=== PATIENT | male | born 1960 | race Caucasian/White ===

== ENCOUNTER 2018-09-19 15:22 | Emergency (ER) | payer MEDICARE, OTHER ==
[~2018-09-19] VITALS: Ht 182.9 cm; Wt 95.0 kg
[2018-09-19] MEDS ORDERED: FOLI1 PO (17:35)
[2018-09-19] MEDS ORDERED: QUET200T PO ×2 (17:35)
[2018-09-19] MEDS ORDERED: THIA100T67 PO (17:35)
[2018-09-19] MEDS ORDERED: OLAN5TAB2 PO (17:35)
[2018-09-19] MEDS ORDERED: VALP250S23 PO (17:35)
[2018-09-19] MEDS ORDERED: ATOR20TA86 PO (17:35)
[2018-09-19] MEDS ORDERED: FLUD25I IM (17:35)
[2018-09-19] MEDS ORDERED: GABA-531 PO (17:35)
[2018-09-19] MEDS ORDERED: ASPI-1182 PO (17:35)
[2018-09-19] MEDS ORDERED: DiphenhydrAMINE HCL 50 MG/ML VIAL IM ONE (18:45)
[2018-09-19] MEDS ORDERED: HALOPERIDOL LACTATE 5 MG/ML VIAL IM ONE (18:45)
[2018-09-19] MEDS ORDERED: LORazepam 2 MG/ML VIAL IM ONE (18:45)
[2018-09-19 19:10] LABS: BASOPHILS % (AUTO) 0.4 % (0.0-2.0); EOSINOPHILS % (AUTO) 1.4 % (1.0-6.0); HEMATOCRIT 35.7 % (41-53); HEMOGLOBIN 11.8 g/dL (13.5-17.5); LYMPHOCYTES # (AUTO) 1.9 K/uL (1.0-4.8); LYMPHOCYTES % (AUTO) 22.3 % (22.0-44.0); MEAN CORPUSCULAR HEMOGLOBIN 31.4 pg (26.0-34.0); MEAN CORPUSCULAR HGB CONC 33.2 G/dL (31.0-37.0); MEAN CORPUSCULAR VOLUME 95 fL (80-100); MONOCYTES # (AUTO) 2.1 K/uL (0.1-1.0); MONOCYTES % (AUTO) 24.9 % (2.0-9.0); NEUTROPHILS # (AUTO) 4.4 K/uL (1.8-7.7); PLATELET COUNT (AUTO) 351 K/uL (150-450); RED BLOOD CELL COUNT(AUTO) 3.76 MIL/uL (4.50-5.90); RED CELL DISTRIBUTION WIDTH 14.2 % (11.5-14.5)
[2018-09-19 19:29] LABS: ANION GAP 12 mmol/L (8-16); CALCIUM, TOTAL 9.3 mg/dL (8.8-10.5); CARBON DIOXIDE 27 mmol/L (22-29); CHLORIDE 103 mmol/L (98-107); CREATININE 0.96 mg/dL (0.60-1.30); GLOMERULAR FILTR. RATE CALC > 60 mL/min (>60); GLUCOSE,RANDOM 105 mg/dL (70-110); POTASSIUM 3.5 mmol/L (3.5-5.1); SODIUM SERUM 142 mmol/L (136-145); UREA NITROGEN, BLOOD 26 mg/dL (7-18)
[2018-09-19 19:32] LABS: APPEARANCE,URINE CLEAR (CLEAR); BILIRUBIN,URINE NEGATIVE (NEGATIVE); GLUCOSE, URINE (UA) NEGATIVE (NEGATIVE); KETONES,URINE 15 mg/dL (NEGATIVE); LEUKOCYTE ESTERASE ,URINE NEGATIVE (NEGATIVE); NITRATE,URINE NEGATIVE (NEGATIVE); OCCULT BLOOD,URINE NEGATIVE (NEGATIVE); PH,URINE 5.5 (5.0-8.0); PROTEIN,URINE TRACE (NEGATIVE); UROBILINOGEN,URINE 0.2 mg/dL (<=1.0)
[2018-09-19 19:33] LABS: ALANINE AMINOTRANSFERASE 66 U/L (12-78); ALBUMIN 3.3 g/dL (3.4-5.0); ALKALINE PHOSPHATASE 59 U/L (46-116); ASPARTATE AMINOTRANSFERASE 72 U/L (15-37); BILIRUBIN,TOTAL 0.4 mg/dL (0.1-1.0); TOTAL PROTEIN, SERUM 7.6 g/dL (6.4-8.2)
[2018-09-19 19:34] LABS: AMPHET/METH SCREEN,URINE NEGATIVE (NEGATIVE); BARBITURATE SCREEN, URINE NEGATIVE (NEGATIVE); BENZODIAZEPINES SCREEN,URINE NEGATIVE (NEGATIVE); CANNABINOID SCREEN,URINE NEGATIVE (NEGATIVE); COCAINE SCREEN,URINE NEGATIVE (NEGATIVE); METHADONE SCREEN, URINE NEGATIVE (NEGATIVE); OPIATE SCREEN,URINE NEGATIVE (NEGATIVE)
[2018-09-19 19:35] LABS: PHENCYCLIDINE SCREEN,URINE NEGATIVE (NEGATIVE)
[2018-09-20 00:48] VITALS: BP 112/66
== END 2018-09-20 00:50 | disposition home or self-care (01) ==
LOC: EMS 15:27
DX: F29 Unspecified psychosis not due to a substance or known physiological condition (principal); F31.9 Bipolar disorder, unspecified; F20.9 Schizophrenia, unspecified
CPT/HCPCS: 36415; 80053; 80307; 81003; 85025; 96372; 99285; G0480; J1200; J1630; J2060

== ENCOUNTER 2023-03-24 09:08 | Inpatient (IN) | payer MEDICARE, MEDICAID ==
[~2023-03-24] VITALS: Ht 172.7 cm; Wt 88.5 kg
[~2023-03-24 09:08] MED LIST: DIVA-112 PO; FOLI-130 PO; LACT10SO10 PO; POLY17PO47 PO; QUET100T34 PO; QUET200T30 PO; RISP120S SQ
[2023-03-24] MEDS ORDERED: LEVO50TA11 PO (11:14)
[2023-03-24] MEDS ORDERED: LEVO330T7 PO (11:14)
[2023-03-24] MEDS ORDERED: DOCU-412 PO (11:14)
[2023-03-24] MEDS ORDERED: FLUP25VI5 IM (11:14)
[2023-03-24] MEDS ORDERED: DiphenhydrAMINE HCL 50 MG/ML VIAL IM ONE (12:15)
[2023-03-24] MEDS ORDERED: LORazepam 2 MG/ML VIAL IM ONE (12:15)
[2023-03-24] MEDS ORDERED: HALOPERIDOL LACTATE 5 MG/ML VIAL IM ONE (12:15)
[2023-03-24 16:34] LABS: COVID AG,FIA SOURCE NASAL SWAB
[2023-03-24 17:18] LABS: SARS-COV2 (COVID) ANTIGEN,FIA Positive (Negative)
[2023-03-24] MEDS: LORazepam 2 MG TABLET PO PRN (19:55)
[2023-03-24] MEDS: HALOPERIDOL 5 MG TABLET PO PRN (19:55)
[2023-03-24] MEDS: ZOLPIDEM TARTRATE 10 MG TABLET PO PRN (20:41)
[2023-03-24] MEDS ORDERED: DIVALPROEX SODIUM 500 MG DR TABLET PO SCH (20:57)
[2023-03-24] MEDS ORDERED: QUEtiapine FUMARATE 100 MG TABLET PO SCH (21:00)
[2023-03-24 21:58] VITALS: BP 115/80; PULSE 94; RESP 18; TEMP 97.5; O2SAT 100
[2023-03-24 22:48] VITALS: BP 120/81; PULSE 90; RESP 18; TEMP 97.5
[2023-03-25] MEDS: HALOPERIDOL 5 MG TABLET PO PRN (05:02)
[2023-03-25] MEDS: LORazepam 2 MG TABLET PO PRN (05:02)
[2023-03-25 07:06] VITALS: BP 120/78; PULSE 96; RESP 18; TEMP 97.5
[2023-03-25 08:09] LABS: BASOPHILS % (AUTO) 0.3 % (0.0-2.0); HEMATOCRIT 31.1 % (41-53); HEMOGLOBIN 10.8 g/dL (13.5-17.5); LYMPHOCYTES # (AUTO) 1.4 K/uL (1.0-4.8); LYMPHOCYTES % (AUTO) 17.5 % (22.0-44.0); MEAN CORPUSCULAR HEMOGLOBIN 34.3 pg (26.0-34.0); MEAN CORPUSCULAR HGB CONC 34.8 G/dL (31.0-37.0); MEAN CORPUSCULAR VOLUME 99 fL (80-100); MONOCYTES # (AUTO) 1.3 K/uL (0.1-1.0); MONOCYTES % (AUTO) 15.2 % (2.0-9.0); NEUTROPHILS # (AUTO) 5.4 K/uL (1.8-7.7); PLATELET COUNT (AUTO) 197 K/uL (150-450); RED BLOOD CELL COUNT(AUTO) 3.16 MIL/uL (4.50-5.90); RED CELL DISTRIBUTION WIDTH 13.7 % (11.5-14.5); WHITE BLOOD COUNT (AUTO) 8.3 K/uL (4.5-11.0)
[2023-03-25 08:29] LABS: ALANINE AMINOTRANSFERASE 92 U/L (12-78); ALKALINE PHOSPHATASE 38 U/L (46-116); ANION GAP 6 mmol/L (8-16); ASPARTATE AMINOTRANSFERASE 220 U/L (15-37); BILIRUBIN,TOTAL 0.4 mg/dL (0.1-1.0); CALCIUM, TOTAL 8.9 mg/dL (8.8-10.5); CARBON DIOXIDE 31 mmol/L (22-29); CHLORIDE 97 mmol/L (98-107); CREATININE 0.61 mg/dL (0.60-1.30); GLOMERULAR FILTR. RATE CALC > 60 mL/min (>60); GLUCOSE,RANDOM 93 mg/dL (70-110); SODIUM SERUM 134 mmol/L (136-145); TOTAL PROTEIN, SERUM 6.7 g/dL (6.4-8.2); UREA NITROGEN, BLOOD 12 mg/dL (7-18)
[2023-03-25 08:48] VITALS: BP 120/86; PULSE 82; RESP 18; TEMP 98.1
[2023-03-25 08:49] VITALS: BP 120/86; PULSE 82; RESP 18; TEMP 98.1; O2SAT 98
[2023-03-25] MEDS ORDERED: QUEtiapine FUMARATE 100 MG TABLET PO SCH (09:00)
[2023-03-25] MEDS ORDERED: ALBUTEROL SULFATE HFA 90 MCG/PUFF 8 GM INHALER IH PRN (09:30)
[2023-03-25] MEDS ORDERED: ONDANSETRON HCL 4 MG TABLET PO PRN (09:30)
[2023-03-25] MEDS ORDERED: CloNIDine HCL 0.1 MG TABLET PO PRN (09:30)
[2023-03-25] MEDS ORDERED: IBUPROFEN 400 MG TABLET PO PRN (09:30)
[2023-03-25] MEDS ORDERED: DOCUSATE SODIUM 100 MG CAPSULE PO PRN (09:30)
[2023-03-25] MEDS ORDERED: MAGNESIUM HYDROXIDE SUSPENSION 30 ML UDCUP PO PRN (09:30)
[2023-03-25] MEDS ORDERED: GuaiFENesin/D-METHORPHAN [SUGAR-FREE] 200-20MG/10 ML SYRUP UDCUP PO PRN (09:30)
[2023-03-25] MEDS ORDERED: LOPERAMIDE HCL 2 MG CAPSULE PO PRN (09:30)
[2023-03-25] MEDS ORDERED: NICOTINE 14 MG/24 HOUR PATCH TD PRN (09:30)
[2023-03-25] MEDS ORDERED: PETROLATUM,WHITE 28 GM JELLY TP PRN (09:30)
[2023-03-25] MEDS ORDERED: ACETAMINOPHEN 325 MG TABLET PO PRN (09:30)
[2023-03-25] MEDS ORDERED: MAG HYDROX/ALUMINUM HYD/SIMETH ES 30 ML SUSPENSION UDCUP PO PRN (09:30)
[2023-03-25] MEDS ORDERED: DEXAMETHASONE 4 MG TABLET PO SCH (10:30)
[2023-03-25] MEDS: AZITHROMYCIN 500 MG TABLET PO SCH (12:49)
[2023-03-25] MEDS: DIVALPROEX SODIUM 500 MG DR TABLET PO SCH ×2 (12:49→21:09)
[2023-03-25] MEDS ORDERED: LEVOCARNITINE 330 MG PO SCH (13:00)
[2023-03-25] MEDS: LACTULOSE 20 GM/30 ML SOLUTION UDCUP PO SCH (17:51)
[2023-03-25] MEDS: AMOX TR/POT CLAV 500 MG/125 MG TABLET PO SCH (17:51)
[2023-03-25] MEDS: QUEtiapine FUMARATE 100 MG TABLET PO SCH (17:51)
[2023-03-25 20:03] VITALS: BP 152/83; PULSE 96; RESP 17; TEMP 98.8
[2023-03-25 20:05] VITALS: BP 152/83; PULSE 96; RESP 17; TEMP 98.8; O2SAT 96
[2023-03-25] MEDS: ZOLPIDEM TARTRATE 10 MG TABLET PO PRN (21:08)
[2023-03-25] MEDS: QUEtiapine FUMARATE 200 MG TABLET PO SCH (21:09)
[2023-03-26] MEDS: LEVOTHYROXINE SODIUM 50 MCG TABLET PO SCH (06:47)
[2023-03-26 08:50] VITALS: BP 140/88; PULSE 99; RESP 18; TEMP 98.2; O2SAT 99
[2023-03-26 08:52] LABS: ALCOHOL, BLOOD (SERUM) < 3 mg/dL (0-10)
[2023-03-26 08:53] VITALS: BP 140/88; PULSE 99; RESP 18; TEMP 98.2
[2023-03-26 08:53] LABS: CHOLESTEROL 135 mg/dL (131-200); HDL CHOLESTEROL 34 mg/dL (40-60); LDL CHOL (CALC.) 83 mg/dL (0-130); THYROID STIMULATING HORMONE 1.16 uIU/mL (0.36-3.74); TRIGLYCERIDES 90 mg/dL (15-150)
[2023-03-26] MEDS: AMOX TR/POT CLAV 500 MG/125 MG TABLET PO SCH ×2 (09:31→16:19)
[2023-03-26] MEDS: POLYETHYLENE GLYCOL 3350 17 GM PACKET PO SCH (09:31)
[2023-03-26] MEDS: DEXAMETHASONE 2 MG TABLET PO SCH (09:31)
[2023-03-26] MEDS: LACTULOSE 20 GM/30 ML SOLUTION UDCUP PO SCH ×2 (09:31→16:19)
[2023-03-26] MEDS: AZITHROMYCIN 500 MG TABLET PO SCH (09:32)
[2023-03-26] MEDS: DIVALPROEX SODIUM 500 MG DR TABLET PO SCH ×2 (09:32→21:04)
[2023-03-26] MEDS: QUEtiapine FUMARATE 100 MG TABLET PO SCH ×2 (09:32→16:19)
[2023-03-26] MEDS: HALOPERIDOL 5 MG TABLET PO PRN (10:40)
[2023-03-26] MEDS: LORazepam 2 MG TABLET PO PRN (10:40)
[2023-03-26 20:02] VITALS: BP 132/76; PULSE 103; RESP 18; TEMP 98.7; O2SAT 95
[2023-03-26 20:32] VITALS: BP 132/76; PULSE 103; RESP 18; TEMP 98.7
[2023-03-26] MEDS: ZOLPIDEM TARTRATE 10 MG TABLET PO PRN (21:04)
[2023-03-26] MEDS: QUEtiapine FUMARATE 200 MG TABLET PO SCH (21:04)
[2023-03-27] MEDS: LEVOTHYROXINE SODIUM 50 MCG TABLET PO SCH (06:53)
[2023-03-27 07:00] VITALS: BP 147/88; PULSE 70; RESP 18; TEMP 97.8
[2023-03-27 08:02] VITALS: BP 132/60; PULSE 88; RESP 18; TEMP 97.9
[2023-03-27 08:05] LABS: COVID AG,FIA SOURCE NASAL SWAB
[2023-03-27 08:54] LABS: SARS-COV2 (COVID) ANTIGEN,FIA Positive (Negative)
[2023-03-27] MEDS: DIVALPROEX SODIUM 500 MG DR TABLET PO SCH ×2 (10:53→20:53)
[2023-03-27] MEDS: QUEtiapine FUMARATE 100 MG TABLET PO SCH ×2 (10:53→17:37)
[2023-03-27] MEDS: LACTULOSE 20 GM/30 ML SOLUTION UDCUP PO SCH ×2 (10:54→17:37)
[2023-03-27] MEDS: POLYETHYLENE GLYCOL 3350 17 GM PACKET PO SCH (10:54)
[2023-03-27] MEDS: AMOX TR/POT CLAV 500 MG/125 MG TABLET PO SCH ×2 (10:54→17:37)
[2023-03-27] MEDS: DEXAMETHASONE 2 MG TABLET PO SCH (10:54)
[2023-03-27] MEDS: AZITHROMYCIN 500 MG TABLET PO SCH (10:54)
[2023-03-27 20:00] VITALS: BP 136/95; PULSE 95; RESP 18; TEMP 97.8
[2023-03-27] MEDS: QUEtiapine FUMARATE 200 MG TABLET PO SCH (20:53)
[2023-03-28] MEDS: LEVOTHYROXINE SODIUM 50 MCG TABLET PO SCH (06:58)
[2023-03-28 08:03] VITALS: BP 167/91; PULSE 90; RESP 18; TEMP 97.4
[2023-03-28] MEDS: LACTULOSE 20 GM/30 ML SOLUTION UDCUP PO SCH ×2 (09:00→16:53)
[2023-03-28] MEDS: POLYETHYLENE GLYCOL 3350 17 GM PACKET PO SCH (09:00)
[2023-03-28] MEDS: DEXAMETHASONE 2 MG TABLET PO SCH (10:14)
[2023-03-28] MEDS: QUEtiapine FUMARATE 100 MG TABLET PO SCH ×2 (10:14→16:52)
[2023-03-28] MEDS: AMOX TR/POT CLAV 500 MG/125 MG TABLET PO SCH ×2 (10:14→16:52)
[2023-03-28] MEDS: AZITHROMYCIN 500 MG TABLET PO SCH (10:15)
[2023-03-28] MEDS: LORazepam 2 MG TABLET PO PRN (10:15)
[2023-03-28] MEDS: DIVALPROEX SODIUM 500 MG DR TABLET PO SCH ×2 (10:16→21:09)
[2023-03-28 13:00] VITALS: BP 136/90; PULSE 80; RESP 18; TEMP 97.6
[2023-03-28] MEDS: HALOPERIDOL 5 MG TABLET PO PRN (14:19)
[2023-03-28 20:11] VITALS: BP 146/87; PULSE 95; RESP 18; TEMP 97.7
[2023-03-28] MEDS: QUEtiapine FUMARATE 200 MG TABLET PO SCH (21:09)
[2023-03-28] MEDS: ZOLPIDEM TARTRATE 10 MG TABLET PO PRN (21:10)
[2023-03-29] MEDS: LEVOTHYROXINE SODIUM 50 MCG TABLET PO SCH (06:29)
[2023-03-29 07:27] LABS: COVID AG,FIA SOURCE NASAL SWAB
[2023-03-29 08:13] VITALS: BP 123/61; PULSE 90; RESP 18; TEMP 98
[2023-03-29 08:36] LABS: SARS-COV2 (COVID) ANTIGEN,FIA Negative (Negative)
[2023-03-29] MEDS: AMOX TR/POT CLAV 500 MG/125 MG TABLET PO SCH ×2 (09:44→16:50)
[2023-03-29] MEDS: AZITHROMYCIN 500 MG TABLET PO SCH (09:44)
[2023-03-29] MEDS: DEXAMETHASONE 2 MG TABLET PO SCH (09:44)
[2023-03-29] MEDS: POLYETHYLENE GLYCOL 3350 17 GM PACKET PO SCH (09:44)
[2023-03-29] MEDS: DIVALPROEX SODIUM 500 MG DR TABLET PO SCH ×2 (09:46→20:59)
[2023-03-29] MEDS: LACTULOSE 20 GM/30 ML SOLUTION UDCUP PO SCH ×2 (09:46→16:50)
[2023-03-29] MEDS: QUEtiapine FUMARATE 100 MG TABLET PO SCH ×2 (09:46→16:50)
[2023-03-29] MEDS: HALOPERIDOL 5 MG TABLET PO PRN (14:13)
[2023-03-29] MEDS: ZOLPIDEM TARTRATE 10 MG TABLET PO PRN (20:59)
[2023-03-29] MEDS: QUEtiapine FUMARATE 200 MG TABLET PO SCH (20:59)
[2023-03-29 21:14] VITALS: BP 139/74; PULSE 79; RESP 18; TEMP 98
[2023-03-30] MEDS: HALOPERIDOL 5 MG TABLET PO PRN ×3 (01:37→22:22)
[2023-03-30] MEDS: LEVOTHYROXINE SODIUM 50 MCG TABLET PO SCH (06:56)
[2023-03-30] MEDS: QUEtiapine FUMARATE 100 MG TABLET PO SCH ×2 (08:07→17:13)
[2023-03-30] MEDS: LACTULOSE 20 GM/30 ML SOLUTION UDCUP PO SCH ×2 (08:07→17:13)
[2023-03-30] MEDS: DEXAMETHASONE 2 MG TABLET PO SCH (08:07)
[2023-03-30] MEDS: AZITHROMYCIN 500 MG TABLET PO SCH (08:07)
[2023-03-30] MEDS: POLYETHYLENE GLYCOL 3350 17 GM PACKET PO SCH (08:07)
[2023-03-30] MEDS: DIVALPROEX SODIUM 500 MG DR TABLET PO SCH ×2 (08:07→20:45)
[2023-03-30] MEDS: AMOX TR/POT CLAV 500 MG/125 MG TABLET PO SCH ×2 (08:07→17:13)
[2023-03-30 10:40] VITALS: BP 145/78; PULSE 93; RESP 18; TEMP 98
[2023-03-30 20:30] VITALS: BP 128/84; PULSE 99; RESP 18; TEMP 97.9
[2023-03-30] MEDS: LORazepam 2 MG TABLET PO PRN (20:45)
[2023-03-30] MEDS: QUEtiapine FUMARATE 200 MG TABLET PO SCH (20:45)
[2023-03-30] MEDS: ZOLPIDEM TARTRATE 10 MG TABLET PO PRN (22:22)
[2023-03-30 23:04] VITALS: BP 128/84; PULSE 99; RESP 19; TEMP 96.8
[2023-03-31] MEDS: LEVOTHYROXINE SODIUM 50 MCG TABLET PO SCH (06:34)
[2023-03-31] MEDS: QUEtiapine FUMARATE 100 MG TABLET PO SCH ×2 (08:11→16:51)
[2023-03-31] MEDS: LACTULOSE 20 GM/30 ML SOLUTION UDCUP PO SCH ×2 (08:11→16:50)
[2023-03-31] MEDS: DIVALPROEX SODIUM 500 MG DR TABLET PO SCH ×2 (08:11→20:28)
[2023-03-31] MEDS: DEXAMETHASONE 2 MG TABLET PO SCH (08:11)
[2023-03-31] MEDS: POLYETHYLENE GLYCOL 3350 17 GM PACKET PO SCH (08:11)
[2023-03-31] MEDS: AMOX TR/POT CLAV 500 MG/125 MG TABLET PO SCH ×2 (08:11→16:50)
[2023-03-31 09:02] VITALS: BP 135/78; PULSE 100; RESP 18; TEMP 97.8
[2023-03-31 20:11] VITALS: BP 139/89; PULSE 104; RESP 18; TEMP 98.1
[2023-03-31] MEDS: ZOLPIDEM TARTRATE 10 MG TABLET PO PRN (20:28)
[2023-03-31] MEDS: QUEtiapine FUMARATE 200 MG TABLET PO SCH (20:28)
[2023-04-01] MEDS: LEVOTHYROXINE SODIUM 50 MCG TABLET PO SCH (07:04)
[2023-04-01] MEDS: AMOX TR/POT CLAV 500 MG/125 MG TABLET PO SCH (08:04)
[2023-04-01] MEDS: DIVALPROEX SODIUM 500 MG DR TABLET PO SCH ×2 (08:04→21:04)
[2023-04-01] MEDS: POLYETHYLENE GLYCOL 3350 17 GM PACKET PO SCH (08:04)
[2023-04-01] MEDS: QUEtiapine FUMARATE 100 MG TABLET PO SCH ×2 (08:04→16:04)
[2023-04-01] MEDS: DEXAMETHASONE 2 MG TABLET PO SCH (08:04)
[2023-04-01] MEDS: LACTULOSE 20 GM/30 ML SOLUTION UDCUP PO SCH ×2 (08:04→16:04)
[2023-04-01 11:18] VITALS: BP 140/80; PULSE 86; RESP 18; TEMP 97.7
[2023-04-01] MEDS: QUEtiapine FUMARATE 200 MG TABLET PO SCH (21:05)
[2023-04-01] MEDS: ZOLPIDEM TARTRATE 10 MG TABLET PO PRN (21:05)
[2023-04-01 21:43] VITALS: BP 139/77; PULSE 100; RESP 18; TEMP 97.2
[2023-04-02] MEDS: HALOPERIDOL 5 MG TABLET PO PRN (02:01)
[2023-04-02] MEDS: LORazepam 2 MG TABLET PO PRN (02:01)
[2023-04-02] MEDS: LEVOTHYROXINE SODIUM 50 MCG TABLET PO SCH (06:19)
[2023-04-02] MEDS: POLYETHYLENE GLYCOL 3350 17 GM PACKET PO SCH (08:07)
[2023-04-02] MEDS: DIVALPROEX SODIUM 500 MG DR TABLET PO SCH (08:07)
[2023-04-02] MEDS: LACTULOSE 20 GM/30 ML SOLUTION UDCUP PO SCH (08:07)
[2023-04-02] MEDS: QUEtiapine FUMARATE 100 MG TABLET PO SCH (08:07)
[2023-04-02 08:42] VITALS: BP 123/79; PULSE 86; RESP 18; TEMP 98
[2023-04-03] MEDS ORDERED: RisperiDONE ER SUSPENSION 120 MG PRE-FILLED SYRINGE SQ SCH (09:00)
== END 2023-04-02 13:15 | DRG 885 ==
LOC: EMS 09:08 → 3EI 20:01
PROVIDERS: ADMIT Psychiatry & Neurology Psychiatry; ATTEND Psychiatry & Neurology Child & Adolescent Psychiatry
DX: F25.0 Schizoaffective disorder, bipolar type (principal); U07.1 COVID-19; B18.2 Chronic viral hepatitis C; Z59.00 Homelessness unspecified; I10 Essential (primary) hypertension; E03.9 Hypothyroidism, unspecified; K21.9 Gastro-esophageal reflux disease without esophagitis; J44.9 Chronic obstructive pulmonary disease, unspecified; D64.9 Anemia, unspecified; Z78.1 Physical restraint status; Z79.899 Other long term (current) drug therapy
CPT/HCPCS: 80053; 80061; 80164; 83036; 84443; 85025; 87070; 87081; 87205; 99285; G0480; J1200; J1630; J2060; J8540; Q9967